=== PATIENT | female | born 1975 | race Caucasian/White ===

== ENCOUNTER 2021-02-18 14:04 | Emergency (ER) | payer OTHER ==
[2021-02-18 14:16] VITALS: PULSE 109; TEMP 98.1; BMI 34.6
[2021-02-18 17:30] VITALS: BP 142/88
== END 2021-02-18 16:55 | disposition home or self-care (01) ==
LOC: JER 14:04
DX: J32.8 Other chronic sinusitis (principal)
CPT/HCPCS: 70450-TC; 99284-25

== ENCOUNTER 2024-02-12 12:58 | Emergency (ER) | payer BC ==
[2024-02-12 13:21] VITALS: BP 129/97; PULSE 101; RESP 18; TEMP 98.6; BMI 26.4
[2024-02-12] MEDS ORDERED: predniSONE 20 MG TABLET (UD) ONE (13:40)
[2024-02-12] MEDS: predniSONE 20 MG TABLET (UD) PO ONE (13:48)
[2024-02-12] MEDS ORDERED: SODIUM CHLORIDE FOR INHALATION 3 ML VIAL.NEB IH ONE (13:55)
[2024-02-12] MEDS: SODIUM CHLORIDE FOR INHALATION 3 ML VIAL.NEB IH ONE (14:12)
[2024-02-12 17:56] LABS: THROAT:GRP A STREP NOT DETECTED (NOTDETECTED)
== END 2024-02-12 15:30 | disposition home or self-care (01) ==
LOC: FER 12:58
DX: R09.82 Postnasal drip (principal); R22.1 Localized swelling, mass and lump, neck; J39.2 Other diseases of pharynx; Z20.822 Contact with and (suspected) exposure to COVID-19
CPT/HCPCS: 0241U-QW; 70360-TC-FY; 71046-TC-FY; 87651; 99284-25